=== PATIENT | male | born 1950 | race Caucasian/White ===

== ENCOUNTER → 2018-02-05 | Outpatient (CLI) | payer OTHER, MEDICARE | END | disposition home or self-care (01) | LOC: RAD 09:59 | DX: M19.012 Primary osteoarthritis, left shoulder (principal); M25.512 Pain in left shoulder; G89.29 Other chronic pain; S49.92XD Unspecified injury of left shoulder and upper arm, subsequent encounter; Z98.890 Other specified postprocedural states; X58.XXXD Exposure to other specified factors, subsequent encounter ==

== ENCOUNTER 2018-03-27 05:39 | Inpatient (IN) | payer OTHER, MEDICARE ==
[2018-03-18 13:12] LABS: HEMOGLOBIN 13.9 gm/dL (14.0-18.0); MCH 33.3 pg (26.0-34.0); MCHC 33.9 g/dL (28.0-37.0); MCV 98.3 fL (80.0-100.0); RBC 4.17 mil/uL (4.50-6.00); RDW 16.3 % (10.5-14.5); WBC 4.8 thou/uL (4.0-11.0)
[2018-03-18 13:21] LABS: URINE BILIRUBIN NEGATIVE (Negative); URINE BLOOD NEGATIVE (Negative); URINE CLARITY CLEAR; URINE COLOR YELLOW; URINE GLUCOSE-RANDOM* NEGATIVE (Negative); URINE KETONES NEGATIVE (Negative); URINE LEUKOCYTES-REFLEX NEGATIVE (Negative); URINE NITRITE-REFLEX NEGATIVE (Negative); URINE PROTEIN (DIPSTICK) NEGATIVE (Negative); URINE SPECIFIC GRAVITY <= 1.005 (1.005-1.035); URINE UROBILINOGEN 0.2 E.U./dl (0.2-1.0)
[2018-03-18 13:25] LABS: PROTIME 10.6 Seconds (9.3-11.4)
[2018-03-18 13:27] LABS: CALCIUM 9.1 mg/dL (8.5-10.1); CREATININE 0.9 mg/dL (0.7-1.3); POTASSIUM 4.1 mmol/L (3.5-5.1)
[~2018-03-27] VITALS: Ht 180.3 cm; Wt 83.0 kg
--- NOTE | ~2018-03-27 | O ---
[facility] [place] [address] OPERATIVE REPORT Name: CECILIA STILES Room #: 420-P [facility] IN M.R.#: [id number] Admission: 03/27/18 Attend Phys: Naeem Epps Discharge: Date of : 52 Report #: [id number] THIS REPORT FOR: //name// CC: Naeem Engel DATE OF SERVICE: 03/27/2018 PREOPERATIVE DIAGNOSES: Left shoulder pain, osteoarthritis, biceps tendinopathy, intraarticular loose body. POSTOPERATIVE DIAGNOSES: Left shoulder pain, osteoarthritis, biceps tendinopathy, intraarticular loose body. PROCEDURE PERFORMED: Left total shoulder arthroplasty with open biceps tenodesis, multiple intraarticular loose bodies removal. SURGEON: Naeem Wheeler M.D. PAPER BAG PRESS OPERATOR: Luisa Torres PA-C. ANESTHESIA: General with preoperative ultrasound-guided interscalene block. FLUIDS: 1000 mL crystalloid. ESTIMATED BLOOD LOSS: Approximately 75 mL. IMPLANTS UTILIZED: DePuy Global Unite total shoulder arthroplasty stem size 14 with a size 14, 135-degree proximal body; 48-mm anchor peg glenoid; 52 x 18 mm eccentric humeral head. DESCRIPTION OF PROCEDURE: After proper identification of the patient and operative site in preoperative holding area, the operative site was signed by myself. Prophylactic antibiotics given. The patient elected to receive an interscalene block after reviewing the risks, benefits, alternatives and potential complications with anesthesia. After a satisfactory ultrasound-guided block, the patient was brought back to the operative suite. After induction of satisfactory general anesthesia, the patient was carefully positioned in the beach chair position with head of bed elevated approximately 40 degrees. Left shoulder was sterilely prepped and draped in the usual manner and placed in a i4.ms limb positioning system to stabilize the limb throughout the entire procedure. Final skin draping was with Ioban. Anterior deltopectoral approach was planned. Skin was incised sharply. Full thickness skin flaps were developed. Cephalic vein and deltopectoral interval were identified. The cephalic vein most easily was brought medially. Subdeltoid adhesions were carefully released and the subdeltoid space was exposed. A [facility] deltoid [address] [address] OPERATIVE REPORT Name: CECILIA STILES Room #: 420-P [facility] IN M.R.#: [id number] Admission: 03/27/18 Attend Phys: Naeem Epps Discharge: Date of : 52 Report #: [id number] retractor was utilized. At this point, a portion of the upper border of the pectoralis major was released. There was pronounced biceps tendinopathy and swelling. Biceps tendon sheath was opened. Multiple loose bodies were removed from the tendon sheath. Swelling was evacuated. Partial thickness tearing was noted and spurring was noted about the lesser tuberosity and bicipital groove. Spurs were carefully removed. Biceps was tenodesed to the undersurface of the pectoralis major tendon using #2 FiberWire. Proximal end of the stump was followed. Bicipital groove and rotator interval were carefully opened. Anterior circumflex vessels were identified, ligated and cauterized. A lesser tuberosity osteotomy was performed with a flexible osteotome. Anterior capsule was also released off the humerus. A complete loss of chondral surface was noted on both sides. The joint spurring was appreciated inferiorly. Multiple intraarticular loose bodies were removed from the subscapularis recess and axillary recess. Abundant hypertrophic synovium was also carefully debrided at approximately 25 degrees of retroversion. A humeral head osteotomy was performed 135 degrees using a cutting guide for reference. Rotator cuff was otherwise intact. Humeral head was excised. It measured between 52 and 56 mm on the backtable. Peripheral osteophytes were removed. An 18-mm thickness provided the best overall recreation of the proximal humeral anatomy. At this point, the stem was dilated using a hand canal reamers up to a size 14, which provided interosseous endosteal fit. A cottonTracks cutter broach was utilized as well as the trial stem was implanted. Protection plate was applied. Joint was then reduced again. Anterior capsule was carefully divided off the subscapularis and the labrum and remaining biceps were released circumferentially. Inferior capsule was carefully released off the labrum. Axillary nerve was identified and protected throughout the entire procedure. Anterior Bankart retractor was placed that was lighted. The glenoid was fully exposed. Best overall fit was a 48 glenoid, I preferred this over the 52 and with a +3 guide, I felt like this helped position the pin, which was nicely seated by palpation and helped with some of the posterior wear. This was then reamed into the subchondral bone after this and had been fully reamed. Any remaining soft tissue was carefully released. Step drill was utilized followed by the peripheral pegs being drilled. Derotation pegs had been utilized as well. This area was thoroughly irrigated with normal saline. Any debris was carefully removed. Trial implant was fully seated and nicely positioned. This was removed. FloSeal was utilized while central peg of the glenoid prosthesis was bone grafted and bone cement was prepared on the backtable. FloSeal was then irrigated free. All holes were contained. Peripheral pegs were then cemented and pressurized using a Tuohy syringe. The implant was carefully impacted into position and held firmly in place and was fully seated until the cement had hardened. At this point, a 52 x 18 eccentric head was placed on the prosthesis and this provided a satisfactory recreation of the proximal humeral anatomy. The joint was reduced. Approximately 50% translation posteriorly was noted and then, the trial implants were removed. Joint was thoroughly irrigated with normal saline. Drill holes were placed in the anterior cortex. Global Unite Brosteotome was impacted. Four #2 FiberWires were passed through the [facility] [address] [place] [address] OPERATIVE REPORT Name: CECILIA STILES Room #: 420-P [facility] IN ..#: [id number] Admission: 03/27/18 Attend Phys: Naeem Epps Discharge: Date of : 52 Report #: [id number] anterior aspect of the humerus. The inferior 2 sutures were passed around the stem, which was assembled and prepared on the backtable. It was seated. The actual implant could not be seated as far into the proximal humeral canal as the trial and it was proud about 1.5 and I did not want to risk proximal humeral fracture with any further impaction. Humeral head was carefully impacted into position. It was reduced. This nicely recreated the proximal humeral anatomy and the subscapularis was repaired with four #2 FiberWires in a modified Andrea-Beto technique. Joint was again thoroughly irrigated with normal saline and irrigated. No other intra-articular loose bodies are noted. Axillary nerve was intact and 1 gram of vancomycin powder was utilized, half of it deep, half of it more superficial. Deltopectoral was closed with #1 Vicryl, 2-0 Vicryl, the subcutaneous tissues. Final skin closure was with a running Monocryl, sealed with Dermabond. Sterile dressing was applied. The patient was awakened and transferred to the recovery room in stable condition. <ELECTRONICALLY SIGNED> By: Naeem Wheeler MD 03/27/18 [id number] Naeem Wheeler MD /nt
[~2018-03-27 05:39] MED LIST: DICLOFENAC SOD50 M1 PO; ULTRACET TABLET1 TAB PO; XYZAL5 MG PO
[2018-03-27 06:44] VITALS: BP 110/65
[2018-03-27 12:30] VITALS: BP 99/66
[2018-03-27 19:35] VITALS: BP 103/74
[2018-03-28 05:24] LABS: HEMATOCRIT 29.1 % (42.0-52.0); HEMOGLOBIN 9.9 gm/dL (14.0-18.0)
[2018-03-28 06:00] VITALS: BP 93/60
[2018-03-28 07:25] VITALS: BP 106/58
[2018-03-28 16:06] VITALS: BP 106/58
== END 2018-03-28 17:35 | disposition home or self-care (01) | DRG 483 ==
LOC: TBA 05:39 → 4E 05:39 → PRE 05:48 → 4E 11:57 → ENTRNSPT 03-28 17:23 → 4E 03-28 17:35
PROVIDERS: Orthopaedic Surgery Sports Medicine; Physician Assistant Surgical
PROC: 0RRK0JZ Replacement of Left Shoulder Joint with Synthetic Substitute, Open Approach (ICD-10-PCS; principal; 2018-03-27)
PROC: 0LS40ZZ Reposition Left Upper Arm Tendon, Open Approach (ICD-10-PCS; principal; 2018-03-27)
PROC: 0RCK0ZZ Extirpation of Matter from Left Shoulder Joint, Open Approach (ICD-10-PCS; 2018-03-27)
DX: M19.012 Primary osteoarthritis, left shoulder (principal); M24.012 Loose body in left shoulder; M75.22 Bicipital tendinitis, left shoulder; D69.6 Thrombocytopenia, unspecified; M75.42 Impingement syndrome of left shoulder; Z88.0 Allergy status to penicillin; Z79.899 Other long term (current) drug therapy; Z81.1 Family history of alcohol abuse and dependence; Z83.3 Family history of diabetes mellitus; Z82.49 Family history of ischemic heart disease and other diseases of the circulatory system; Z82.3 Family history of stroke
CPT/HCPCS: 10783; 50010; 50101; 50172; 50386; 50417; 50697; 50733; 50935; 51320; 51751; 52001; 52138; 52256; 52282; 53000; 53078; 54118; 55430; 56521; 56524; 56525; 56526; 56530; 57095; 57103; 62110; 62900; 64039; 70005